=== PATIENT | male | born 1985 | race Caucasian/White ===

== ENCOUNTER 2020-11-15 23:25 | Emergency (ER) | payer OTHER ==
[~2020-11-15] VITALS: Ht 175.3 cm; Wt 87.1 kg
[2020-11-15 23:47] VITALS: BP 126/84
--- NOTE | 2020-11-15 23:56 | NUR ---
SEEN BY MD IN TRIAGE
[2020-11-16 00:09] VITALS: BP 126/84
--- NOTE | 2020-11-16 00:09 | NUR ---
PT SEEN AND D/C'ED BY MD, NO NURSING INTERVENTIONS DONE
--- NOTE | 2020-11-16 00:10 | NUR ---
Patient discharged with v/s stable. Written and verbal after care instructions given and explained. Patient alert, oriented and verbalized understanding of instructions. Ambulatory with steady gait. All questions addressed prior to discharge. ID band removed. Patient advised to follow up with PMD. Rx of BENADRYL given. Patient educated on indication of medication including possible reaction and side effects. Opportunity to ask questions provided and answered.
== END 2020-11-16 00:10 | disposition home or self-care (01) ==
LOC: MED 23:25
DX: S90.861D Insect bite (nonvenomous), right foot, subsequent encounter (principal)
CPT/HCPCS: 99282